=== PATIENT | male | born 1950 | race Hispanic/Latino ===

== ENCOUNTER 2021-10-27 11:36 | Inpatient (IN) | payer MEDICARE ==
[2021-10-27] MEDS ORDERED: Nitroglycerin 0.4 MG TAB (25 Tab Bottle) SL PRN (12:43)
[2021-10-27 16:26] VITALS: BMI 29.8
[2021-10-27] MEDS: Carvedilol 12.5 MG TAB PO SCH (17:36)
[2021-10-27] MEDS ORDERED: Acetaminophen 325 MG TAB PO PRN (19:54)
[2021-10-27] MEDS: Atorvastatin Calcium 40 MG TAB PO SCH (20:23)
[2021-10-27] MEDS ORDERED: Carvedilol 25 MG TAB PO SCH (21:00)
[2021-10-27] MEDS ORDERED: Atorvastatin Calcium 20 MG TAB PO SCH (21:00)
[2021-10-27 21:05] LABS: CKMB 22.1 ng/mL (0-6.6)
[2021-10-27] MEDS ORDERED: Enoxaparin Sodium 100 MG/ML SYRINGE SC SCH (21:15)
[2021-10-28 00:51] LABS: Troponin I 5.184 ng/mL (< 0.028)
[2021-10-28 03:56] LABS: #Eosinphils 0.3 10x3/uL (0.0-0.5); #Monocytes 1.2 10x3/uL (0.0-1.1); #Neutrophils 6.1 10x3/uL (1.5-8.4); %Basophils 0.4 % (0.0-2.0); %Eosinophils 3.4 % (0.0-6.0); %Lymphocytes 23.8 % (18.0-47.0); %Monocytes 11.4 % (0.0-10.0); %Neutrophils 60.6 % (40.0-75.0); Hemoglobin 14.6 g/dL (13.5-17.5); Mean Corpuscular HGB CONC 34.2 g/dL (32.0-36.0); Mean Corpuscular Hemoglobin 30.5 pg (27.0-33.0); Mean Corpuscular Volume 89.1 fl (81.2-95.1); Mean Platelet Volume 10.7 fl (7.4-10.4); Platelet Count 178 10x3/uL (150-450); RBC Distribution Width 13.3 % (11.5-14.5); Red Blood Cell (RBC) Count 4.79 10x6/uL (4.32-5.72); White Blood Cell (WBC) Count 10.1 10x3/uL (3.5-10.5)
[2021-10-28 04:03] LABS: Anion Gap 12 mmol/L (10-20); BUN (Urea Nitrogen) 17 mg/dL (8.4-25.7); Calc. Creatinine Clearance 80 mL/min (70-130); Carbon Dioxide 27 mmol/L (23-31); Chloride 107 mmol/L (98-107); Estimated GFR 64; Glucose 107 mg/dL (80-115); Magnesium 1.9 mg/dL (1.6-2.6); Potassium 4.4 mmol/L (3.5-5.1); Sodium 142 mmol/L (136-145)
[2021-10-28 04:14] LABS: PTT 33.2 sec (22.0-33.0); Prothrombin Time 10.9 sec (9.5-12.1)
[2021-10-28] MEDS ORDERED: Communication Order-Pharmacy FS SCH (08:45)
[2021-10-28] MEDS ORDERED: Aspirin Chewable 81 MG TAB PO SCH (09:00)
[2021-10-28] MEDS ORDERED: Clopidogrel Bisulfate 75 MG TAB PO SCH (09:00)
[2021-10-28] MEDS ORDERED: Lisinopril 5 MG TAB PO SCH (09:00)
[2021-10-28 09:23] LABS: PTT 28.5 sec (22.0-33.0); Prothrombin Time 10.6 sec (9.5-12.1)
[2021-10-28] MEDS: Carvedilol 12.5 MG TAB PO SCH ×2 (10:06→16:38)
[2021-10-28] MEDS: Lisinopril 20 MG TAB PO SCH (10:06)
[2021-10-28] MEDS: Aspirin 81 mg Enteric Coated Tablet PO SCH (10:06)
[2021-10-28] MEDS: Clopidogrel Bisulfate 75 MG TAB PO SCH (10:06)
[2021-10-28] MEDS: Ondansetron PF 4 MG/2 ML Vial IVP PRN ×2 (10:07→23:01)
[2021-10-28] MEDS: Icosapent Ethyl 1 GM CAPSULE PO SCH (10:07)
[2021-10-28] MEDS: Alogliptin 25 MG TAB PO SCH (10:11)
[2021-10-28] MEDS: Glimepiride 2 MG TAB PO SCH (10:11)
[2021-10-28] MEDS: Sodium Chloride 0.9% 1,000 ML IV SCH ×2 (10:14→23:04)
[2021-10-28] MEDS: Atorvastatin Calcium 40 MG TAB PO SCH (20:57)
[2021-10-28] MEDS ORDERED: predniSONE 20 MG TAB PO SCH (21:00)
[2021-10-29] MEDS: Sodium Chloride 0.9% 1,000 ML IV SCH (00:59)
[2021-10-29] MEDS ORDERED: Mag-Al 1200 mg/1200 mg/30 ML UDCUP PO SCH (01:00)
[2021-10-29] MEDS ORDERED: Pantoprazole 40 MG VIAL IVP SCH (01:45)
[2021-10-29] MEDS ORDERED: Lorazepam 2 MG/ML VIAL SLOW IVP SCH (01:45)
[2021-10-29 05:46] LABS: #Monocytes 0.2 10x3/uL (0.0-1.1); #Neutrophils 8.2 10x3/uL (1.5-8.4); %Basophils 0.1 % (0.0-2.0); %Eosinophils 0.1 % (0.0-6.0); %Lymphocytes 9.3 % (18.0-47.0); %Monocytes 1.6 % (0.0-10.0); %Neutrophils 88.5 % (40.0-75.0); Mean Corpuscular HGB CONC 34.4 g/dL (32.0-36.0); Mean Corpuscular Hemoglobin 30.4 pg (27.0-33.0); Mean Corpuscular Volume 88.3 fl (81.2-95.1); Platelet Count 188 10x3/uL (150-450); RBC Distribution Width 13.2 % (11.5-14.5); Red Blood Cell (RBC) Count 4.94 10x6/uL (4.32-5.72); White Blood Cell (WBC) Count 9.3 10x3/uL (3.5-10.5)
[2021-10-29 05:50] LABS: Anion Gap 13 mmol/L (10-20); BUN (Urea Nitrogen) 16 mg/dL (8.4-25.7); Calc. Creatinine Clearance 90 mL/min (70-130); Calcium 9.1 mg/dL (7.8-10.44); Carbon Dioxide 23 mmol/L (23-31); Chloride 106 mmol/L (98-107); Estimated GFR 74; Glucose 191 mg/dL (80-115); Potassium 4.9 mmol/L (3.5-5.1); Sodium 137 mmol/L (136-145)
[2021-10-29] MEDS: Aspirin 81 mg Enteric Coated Tablet PO SCH (05:59)
[2021-10-29] MEDS: Carvedilol 12.5 MG TAB PO SCH (05:59)
[2021-10-29] MEDS: Lisinopril 20 MG TAB PO SCH (05:59)
[2021-10-29] MEDS: Clopidogrel Bisulfate 75 MG TAB PO SCH (05:59)
[2021-10-29] MEDS: Icosapent Ethyl 1 GM CAPSULE PO SCH (06:20)
[2021-10-29] MEDS: Famotidine/PF 20 mg/2ml Vial SLOW IVP SCH ×2 (06:45→06:52)
[2021-10-29] MEDS: Ondansetron PF 4 MG/2 ML Vial IVP PRN (06:52)
[2021-10-29] MEDS ORDERED: Lidocaine 1% 20 ML MDV ONE (06:53)
[2021-10-29] MEDS ORDERED: Nitroglycerin 50 MG/250 ML BOT 250 ML ONE (06:53)
[2021-10-29] MEDS ORDERED: Heparin 10,000 UNITS/ 10 ML VIAL ONE ×2 (06:53→08:14)
[2021-10-29] MEDS ORDERED: Bivalirudin 250 MG VIAL ONE (06:54)
[2021-10-29] MEDS ORDERED: Sodium Chloride 0.9% 1,000 ML ONE (06:54)
[2021-10-29] MEDS ORDERED: Adenosine 6 MG/2 ML VIAL ONE (06:54)
[2021-10-29] MEDS ORDERED: predniSONE 20 MG TAB PO SCH (08:00)
[2021-10-29] MEDS ORDERED: diphenhydrAMINE 50 MG/ML VIAL IVP SCH (08:00)
[2021-10-29] MEDS ORDERED: Fentanyl 100 MCG/2 ML VIAL ONE (08:41)
[2021-10-29] MEDS ORDERED: Midazolam HCl 2 mg/2 ml Vial ONE (08:42)
[2021-10-29] MEDS ORDERED: Acetaminophen/Codeine 30-300mg Tablet PO PRN ×2 (09:50)
[2021-10-29] MEDS ORDERED: Nitroglycerin 0.4 MG TAB (25 Tab Bottle) SL PRN (09:50)
[2021-10-29] MEDS ORDERED: Sodium Chloride 0.9% 200 ML IV PRN (09:50)
[2021-10-29] MEDS: Alogliptin 25 MG TAB PO SCH (11:23)
[2021-10-29] MEDS: Glimepiride 2 MG TAB PO SCH (11:23)
[2021-10-29 12:01] VITALS: BP 129/78; TEMP 97.9
[2021-10-29] MEDS ORDERED: Iopamidol 300 61% 100 ML VIAL FS ONE (13:11)
== END 2021-10-29 13:36 | disposition home or self-care (01) | DRG 247 ==
LOC: CSHERS 11:36 → INTOOBSV 11:51 → CSHERHOLD 11:51 → CSHTELE 15:15 → OBSVTOIN 10-29 09:02
PROVIDERS: ADMIT Emergency Medicine; ATTEND Hospitalist
PROC: 027034Z Dilation of Coronary Artery, One Artery with Drug-eluting Intraluminal Device, Percutaneous Approach (ICD-10-PCS; principal; 2021-10-29)
PROC: 4A023N7 Measurement of Cardiac Sampling and Pressure, Left Heart, Percutaneous Approach (ICD-10-PCS; 2021-10-29)
PROC: B2111ZZ Fluoroscopy of Multiple Coronary Arteries using Low Osmolar Contrast (ICD-10-PCS; 2021-10-29)
PROC: B2151ZZ Fluoroscopy of Left Heart using Low Osmolar Contrast (ICD-10-PCS; 2021-10-29)
PROC: B2181ZZ Fluoroscopy of Left Internal Mammary Bypass Graft using Low Osmolar Contrast (ICD-10-PCS; 2021-10-29)
PROC: B2131ZZ Fluoroscopy of Multiple Coronary Artery Bypass Grafts using Low Osmolar Contrast (ICD-10-PCS; 2021-10-29)
PROC: B240ZZ3 Ultrasonography of Single Coronary Artery, Intravascular (ICD-10-PCS; 2021-10-29)
DX: I21.4 Non-ST elevation (NSTEMI) myocardial infarction (principal); I25.10 Atherosclerotic heart disease of native coronary artery without angina pectoris; K21.9 Gastro-esophageal reflux disease without esophagitis; E78.5 Hyperlipidemia, unspecified; E11.9 Type 2 diabetes mellitus without complications; I11.9 Hypertensive heart disease without heart failure; Z20.822 Contact with and (suspected) exposure to COVID-19; I48.0 Paroxysmal atrial fibrillation; E66.01 Morbid (severe) obesity due to excess calories; Z68.29 Body mass index [BMI] 29.0-29.9, adult; Z90.49 Acquired absence of other specified parts of digestive tract; Z98.890 Other specified postprocedural states; Z79.82 Long term (current) use of aspirin; Z95.1 Presence of aortocoronary bypass graft; Z95.5 Presence of coronary angioplasty implant and graft; Z79.899 Other long term (current) drug therapy; Z79.02 Long term (current) use of antithrombotics/antiplatelets; Z80.9 Family history of malignant neoplasm, unspecified; Z82.49 Family history of ischemic heart disease and other diseases of the circulatory system; Z79.84 Long term (current) use of oral hypoglycemic drugs; Z91.013 Allergy to seafood
CPT/HCPCS: 36415; 36416; 71045; 80048; 80053; 81003; 82553; 83690; 83735; 84484; 85025; 85347; 85610; 85730; 92928; 92978; 93005; 93010; 93306; 93459; 94760; 96372; 96374; 96375; 96376; 99152; 99153; C1725; C1753; C1769; C1874; C1887; C1894; C9113; C9600; G0378; J0153; J0583; J1200; J1644; J1650; J2060; J2250; J2405; J3010; J7050; J7512; Q0162; Q9967; S0028; U0003; U0005